=== PATIENT | female | born 1965 ===

== ENCOUNTER 2021-08-14 01:36 | Day surgery (SDC) | payer MEDICARE ==
[2021-08-14] MEDS ORDERED: ACET500 PO (12:10)
[2021-08-14] MEDS ORDERED: GABA100 PO (12:16)
[2021-08-14] MEDS ORDERED: QVAR REDIHALE10.6 G3 INH (12:16)
[2021-08-14] MEDS ORDERED: MAGNESIUM OXID500 MG PO (12:17)
[2021-08-14] MEDS ORDERED: Robaxin750 MG PO (12:17)
[2021-08-14] MEDS ORDERED: ONDA4 PO (12:18)
[2021-08-14] MEDS ORDERED: NEBI10 PO (12:18)
[2021-08-14] MEDS ORDERED: ALDACTONE25 MG PO (12:18)
[2021-08-14] MEDS ORDERED: TRAM50 PO (12:18)
[2021-08-14] MEDS ORDERED: DILT120 PO (12:19)
[2021-08-14] MEDS ORDERED: ZYRTEC10 M1 PO (12:19)
[2021-08-14] MEDS ORDERED: LEVALBUTER1.25 MG/01 INH (12:20)
[2021-08-14] MEDS ORDERED: ELIQUIS2.5 MG PO (12:20)
[2021-08-14] MEDS ORDERED: ERGO400 PO (12:21)
== END 2021-08-14 11:50 | disposition home or self-care (01) ==
LOC: ATC 01:36
DX: C73 Malignant neoplasm of thyroid gland (principal); Z88.1 Allergy status to other antibiotic agents; Z91.040 Latex allergy status; Z88.0 Allergy status to penicillin; Z88.2 Allergy status to sulfonamides; Z88.8 Allergy status to other drugs, medicaments and biological substances; Z91.048 Other nonmedicinal substance allergy status
CPT/HCPCS: J3240

== ENCOUNTER 2021-08-15 05:52 | Day surgery (SDC) | payer MEDICARE ==
[~2021-08-15 05:52] MED LIST: ACET500 PO; ALDACTONE25 MG PO; DILT120 PO; ELIQUIS2.5 MG PO; ERGO400 PO; GABA100 PO; LEVALBUTER1.25 MG/01 INH; MAGNESIUM OXID500 MG PO; NEBI10 PO; ONDA4 PO; QVAR REDIHALE10.6 G3 INH; Robaxin750 MG PO; TRAM50 PO; ZYRTEC10 M1 PO
== END 2021-08-15 11:42 | disposition home or self-care (01) ==
LOC: ATC 05:52
DX: C73 Malignant neoplasm of thyroid gland (principal); J45.909 Unspecified asthma, uncomplicated; I48.91 Unspecified atrial fibrillation; K21.9 Gastro-esophageal reflux disease without esophagitis
CPT/HCPCS: J3240